=== PATIENT | female | born 1965 | race Caucasian/White ===

== ENCOUNTER 2019-08-18 | Emergency (ER) | payer OTHER ==
[~2019-08-18] MED LIST: CIPROFLOXACIN500 M1 PO; CIPROFLOXACN500 MG PO; ECK ANTACID1 CHW PO; EQL IBUPROFEN200 MG PO; LORTAB 5/3255 MG PO; LORTAB5 PO; NAPROSYN500 MG OR; NO HOME MEDS; PEPTO BISMOL30 ML OR; PERCOCET 10/31 COMBO PO; TYLENOL500 MG OR; ULTRAM50 MG OR; ZOFRAN ODT8 MG PO
[2019-08-18] MEDS ORDERED: PANTOPRAZOLE SO40 M1 PO (12:05)
[2019-08-18] MEDS ORDERED: LISINOPRIL10 M1 PO (12:05)
[2019-08-18] MEDS ORDERED: CLOPIDOGREL75 MG PO (12:05)
[2019-08-18] MEDS ORDERED: LOPRESSOR25 M1 PO (12:06)
[2019-08-18] MEDS ORDERED: ATORVASTATIN CA80 MG PO (12:06)
[2019-08-18] MEDS ORDERED: BACTROBAN TOP (12:29)
== END 2019-08-18 12:40 | disposition home or self-care (01) | DRG 563 ==
DX: S62.522A Displaced fracture of distal phalanx of left thumb, initial encounter for closed fracture (principal); S50.311A Abrasion of right elbow, initial encounter; S40.012A Contusion of left shoulder, initial encounter; S20.212A Contusion of left front wall of thorax, initial encounter; I10 Essential (primary) hypertension; V53.6XXA Passenger in pick-up truck or van injured in collision with car, pick-up truck or van in traffic accident, initial encounter

== ENCOUNTER 2019-10-22 | Emergency (ER) | payer OTHER ==
[~2019-10-22] MED LIST changes: +ATORVASTATIN CA80 MG PO; +BACTROBAN TOP; +CLOPIDOGREL75 MG PO; +LISINOPRIL10 M1 PO; +LOPRESSOR25 M1 PO; +PANTOPRAZOLE SO40 M1 PO
== END 2019-10-22 09:48 | disposition home or self-care (01) | DRG 566 ==
DX: S62.522K Displaced fracture of distal phalanx of left thumb, subsequent encounter for fracture with nonunion (principal); X58.XXXD Exposure to other specified factors, subsequent encounter

== ENCOUNTER 2021-09-17 09:27 | Observation (INO) | payer OTHER ==
[~2021-09-17] VITALS: Ht 154.9 cm; Wt 86.0 kg
--- NOTE | 2021-09-17 09:30 | NUR ---
PT AMB TO ROOM IN NO DISTRESS
--- NOTE | 2021-09-17 10:15 | NUR ---
UP TO WC TO GIVE URINE, TEACHING GIVEN ON PROPER HYPEINE PRIOR TO OBTAINING SPECIMEN. HAT PLACED I TOILERT FOR EASE. RETURNED TO BED OR CXR. TOLERTATED WELL.
[2021-09-17 10:26] LABS: URINE BILIRUBIN - DIPSTICK NEGATIVE (NEGATIVE); URINE BLOOD DIPSTICK NEGATIVE (NEGATIVE); URINE COLOR YELLOW; URINE GLUCOSE - DIPSTICK NEGATIVE (NEGATIVE); URINE KETONE TRACE mg/dL (NEGATIVE); URINE LEUK ESTERASE NEGATIVE (NEGATIVE); URINE PROTEIN - DIPSTICK 30 mg/dL (NEG-TRACE)
[2021-09-17 10:32] LABS: URINE NITRITE - DIPSTICK NEGATIVE (Negative); URINE RBC 0-2 RBC/hpf (0-5); URINE SQUAMOUS EPITHELIAL CELL FEW EPI/hpf (0-FEW); URINE WBC 0-2 WBC/hpf (0-5)
--- NOTE | 2021-09-17 10:57 | NUR ---
MD AT BEDSIDE TO DISCUSS RESULTS AND PLAN OF CARE.
--- NOTE | 2021-09-17 11:11 | NUR ---
PATIENT FEELING NAUSEAS. MD NOTIFIED.
--- NOTE | 2021-09-17 11:25 | NUR ---
2L NC PLACED ON PATIENT PER MD ORDER.
--- NOTE | 2021-09-17 12:00 | NUR ---
PATIENT RESTING IN STRETCHER AND DENIES ANY NEEDS. CALL TERRELL WITHIN REACH.
[2021-09-17 12:42] LABS: HEMATOCRIT 44.6 % (37.0-47.0); IMMATURE GRANULOCYTES 0.4 % (0.0-5.0); MEAN CELL VOLUME 99.1 fL CALC (80.0-100.0); MEAN CORPUSCULAR HGB 31.1 pG CALC (26.0-32.0); MEAN CORPUSCULAR HGB CONC 31.4 g/dL CAL (32.0-36.0); NEUT# 6.52 thou/uL (2.00-7.15); RED BLOOD COUNT 4.5 mill/uL (4.20-5.60); RED CELL DISTRI WIDTH 13.8 % (11.5-15.5)
--- NOTE | 2021-09-17 13:00 | NUR ---
PATIENT SPO2 96% ON 2L NC AND SHE IS AWARE OF PENDING RESULTS AND WAIT TIME. CALL TERRELL WITHIN REACH.
[2021-09-17 13:02] LABS: ALBUMIN 4.5 g/dL (3.2-5.0); ALKALINE PHOSPHATASE 87 u/l (38-126); BILIRUBIN, TOTAL 0.4 mg/dL (0.0-1.4); BUN 18 mg/dL (7-17); BUN/CREATININE RATIO 25 (12-20 (CALC)); CHLORIDE 100 mmol/l (95-108); CREATININE 0.7 mg/dL (0.5-1.0); GFR > 60 ML/MIN (>=60 (CALC)); GFR FOR AFR.AMER. > 60 ML/MIN (>=60 (CALC)); LIPASE 66 u/l (23-300); POTASSIUM 4.2 mmol/l (3.5-5.1); SGOT/AST 40 u/l (14-36); TOTAL PROTEIN 8.9 g/dL (6.3-8.2)
[2021-09-17 13:03] LABS: ANION GAP 15 (6-22 (CALC)); CARBON DIOXIDE 27 mmol/l (22-30); SODIUM 138 mmol/l (137-146)
[2021-09-17 13:05] LABS: ACT PARTIAL THROMBO TIME 30.5 SECONDS (20.0-32.5); PROTHROMBIN TIME 10.9 SECONDS (9.0-12.5)
--- NOTE | 2021-09-17 13:52 | NUR ---
PATIENT MEDICATED WITH TYLENOL FOR HEADACHE ORFERED.
--- NOTE | 2021-09-17 14:50 | NUR ---
MD AT BEDSIDE TO DISCUSS RESULTS AND PLAN FOR ADMISSION.
--- NOTE | 2021-09-17 15:30 | NUR ---
PATIENT AWARE OF PLAN FOR ADMISSION AND WAIT TIME. SHE DENIES ANY NAUSEA OR PAIN IN HEAD AT THIS TIME. CALL TERRELL WITHIN REACH.
--- NOTE | 2021-09-17 16:20 | NUR ---
PATIENT REPORT CALLED TO CLINT RENEE.
--- NOTE | 2021-09-17 16:45 | NUR ---
Admission Note Report Given to: CLINT RENEE Transported by: X Wheelchair Stretcher Transported with: X Nurse Transporter X Patent IV X O2 X Rail Layer Location: ICU X MS2 PATIENT TO ROOM IN STABLE CONDITION.
[2021-09-17 17:10] VITALS: BP 119/66
--- NOTE | 2021-09-17 17:10 | NUR ---
PT IN ROOM ACCOMPANIED BY Mohamud GONZALEZ RN. RESPITATIONS EVEN AND UNLABORED. O2 IN PLACE @2L NASAL CANULA; O2 SAT 99%. CLEAR UPPER LUNG SOUNDS; CRACKLES HEARD ON LOWER LOBES UPON AUSCULTATION. HYPOACTIVE BOWEL SOUNDS X4 QUADRANTS. NO DISTRESS NOTED. PT C/O ABDOMINAL PAIN 02/26; PT C/O NAUSEA. PT SITUATED TO ROOM AND THE USE OF CALL LIGHT. CALL LIGHT WITHIN REACH.
[2021-09-17 18:59] VITALS: BP 132/61
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
--- NOTE | 2021-09-17 20:09 | NUR ---
PATIENT STATES TYLENOL WORKED AND HER HEADACHE PAIN IS NOW A 2 .
[2021-09-18] VITALS: BP 109/73
--- NOTE | 2021-09-18 00:13 | NUR ---
PATIENT RESTING IN BED WITH EYES CLOSED. RESPIRATIONS EASY AND UNLABORED AT THIS TIME. O2 REMAINS ON AT 2 LITERS. SIDERAILS ARE UP AND CALL LIGHT IS WITHIN REACH. TELE MONITOR ON AND BEING MONITORED BY ED.
--- NOTE | 2021-09-18 03:40 | NUR ---
PATIENT C/O "SLIGHT" HEADACHE AND PAIN LEVEL IS A "3" OUT OF 0-10 AND IS REQUESTING TYLENOL AT THIS TIME. 650MG OF TYLENOL GIVEN AND WILL RE-EVLUATED. SIDERAILS ARE UP CALL LIGHT [facility] REACH.
[2021-09-18 04:00] VITALS: BP 126/71
--- NOTE | 2021-09-18 04:12 | NUR ---
PATIENT AWAKE IN BED AT THIS TIME. PATIENT STATES HER HEADACHE "DOES FEELL A LITTLE BETTER" TELE MONITOR REMAINS IN PLACE AND SIDERAILS ARE UP X 2 CALL LIGHT IS WITHIN REACH.
[2021-09-18 06:18] LABS: HEMATOCRIT 43.9 % (37.0-47.0); HEMOGLOBIN 13.8 g/dl (12.0-16.0); IMMATURE GRANULOCYTES 0.7 % (0.0-5.0); MEAN CELL VOLUME 99.5 fL CALC (80.0-100.0); MEAN CORPUSCULAR HGB 31.3 pG CALC (26.0-32.0); MEAN CORPUSCULAR HGB CONC 31.4 g/dL CAL (32.0-36.0); NEUT# 4.9 thou/uL (2.00-7.15); RED BLOOD COUNT 4.41 mill/uL (4.20-5.60); RED CELL DISTRI WIDTH 13.7 % (11.5-15.5)
[2021-09-18 06:37] LABS: ALBUMIN 4.4 g/dL (3.2-5.0); ALKALINE PHOSPHATASE 83 u/l (38-126); ANION GAP 16 (6-22 (CALC)); BILIRUBIN, TOTAL 0.4 mg/dL (0.0-1.4); BUN 25 mg/dL (7-17); BUN/CREATININE RATIO 36 (12-20 (CALC)); CARBON DIOXIDE 25 mmol/l (22-30); CHLORIDE 101 mmol/l (95-108); CREATININE 0.7 mg/dL (0.5-1.0); GFR > 60 ML/MIN (>=60 (CALC)); GFR FOR AFR.AMER. > 60 ML/MIN (>=60 (CALC)); POTASSIUM 4.7 mmol/l (3.5-5.1); SGOT/AST 39 u/l (14-36); SODIUM 137 mmol/l (137-146); TOTAL PROTEIN 8.4 g/dL (6.3-8.2)
[2021-09-18 08:23] VITALS: BP 122/72
--- NOTE | 2021-09-18 09:30 | NUR ---
PT IN BED IN LOW TERESA'S POSITION. CLEAR UPPER LOBES; CRACKLES ON LOWER LOBES UPON AUSCULTATION; EVEM AND UNLABORED RESPIRATIONS. NO DISTRESS NOTED. PT DENIES PAIN AT THE MOMENT. CALL LIGHT WITHIN REACH.
[2021-09-18 10:00] VITALS: BP 144/80
--- NOTE | 2021-09-18 12:00 | NUR ---
PT SITTING IN BED. PT REQUESTED JELLO AND FRESH WATER. PT C/O HEADACHE 05/29; PT MEDICATED AND REASSESSED 10/27. CALL LIGHT WITHIN REACH.
--- NOTE | 2021-09-18 16:00 | NUR ---
PT IN BED TALKING ON THE PHONE. NO DISTRESS NOTED. PT DENIES PAIN AT THE MOMENT. CALL LIGHT WITHIN REACH.
[2021-09-18 16:01] VITALS: BP 144/84
[2021-09-18 19:00] VITALS: BP 118/58
--- NOTE | 2021-09-18 19:10 | NUR ---
PATIETN SITTING AT BEDSIDE ALERT AND ORIENTED X 3 DENEIS ANY PIAN AT THIS TIME. TELE MONITOR IN PLACE BEING MONITORED BY ED. 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 02 REMAINS ON AT 2 LITERS AND SPO2 IS 97%. PATIENT HAS LARGE BM AT THIS TIME BOWEL SOUNDS ACTIVE AND PASSING GAS. UPPER AND MIDDLE LUNG LOBES ARE CLEAR AND LOWER [place]LLY HAVE CRACKLES NOTED. SIDERAILS ARE UP CALL LIGHT WITHIN REACH WILL CONTINUE TO MONITOR.
--- NOTE | 2021-09-18 23:51 | NUR ---
PATIENT LAYING IN BED WITH EYES CLOSED AT THIS TIME. RESPIRATIONS EASY AND NON LABORED AT THIS TIME 02 REMAINS ON 2LITERS. TELE MONITOR REMAINS ON WILL CONTINUE TO MONITOR.
[2021-09-19 00:29] VITALS: BP 127/66
--- NOTE | 2021-09-19 03:59 | NUR ---
PATIENT RESTING IN BED AT THIS TIME. DENIES ANY NEEDS AT THIS TIME. SIDERAILS ARE UP CALL LIGHT WITHIN REACH. TELE MONITOR ON AND BEING MONITORED BY ED. WILL CONTINUE TO MONITOR.
[2021-09-19 04:29] VITALS: BP 127/68
[2021-09-19 05:50] LABS: HEMATOCRIT 42.1 % (37.0-47.0); HEMOGLOBIN 13.4 g/dl (12.0-16.0); IMMATURE GRANULOCYTES 0.4 % (0.0-5.0); MEAN CELL VOLUME 98.1 fL CALC (80.0-100.0); MEAN CORPUSCULAR HGB 31.2 pG CALC (26.0-32.0); MEAN CORPUSCULAR HGB CONC 31.8 g/dL CAL (32.0-36.0); NEUT# 6.84 thou/uL (2.00-7.15); RED BLOOD COUNT 4.29 mill/uL (4.20-5.60); RED CELL DISTRI WIDTH 13.5 % (11.5-15.5)
[2021-09-19 06:16] LABS: ALKALINE PHOSPHATASE 82 u/l (38-126); ANION GAP 15 (6-22 (CALC)); BILIRUBIN, TOTAL 0.4 mg/dL (0.0-1.4); BUN 20 mg/dL (7-17); BUN/CREATININE RATIO 32 (12-20 (CALC)); CARBON DIOXIDE 26 mmol/l (22-30); CHLORIDE 100 mmol/l (95-108); CREATININE 0.6 mg/dL (0.5-1.0); GFR > 60 ML/MIN (>=60 (CALC)); GFR FOR AFR.AMER. > 60 ML/MIN (>=60 (CALC)); POTASSIUM 4.5 mmol/l (3.5-5.1); SGOT/AST 37 u/l (14-36); SODIUM 136 mmol/l (137-146); TOTAL PROTEIN 7.7 g/dL (6.3-8.2)
--- NOTE | 2021-09-19 07:40 | NUR ---
Patient is screened for rehab intervention and no needs are identified at this time
[2021-09-19 08:45] VITALS: BP 126/70
--- NOTE | 2021-09-19 08:50 | NUR ---
PT SITTING IN BED. EVEN AND UNLABORED RESPIRATIONS; CLEAR SOUNDS ON RUL,RML&DEMETRIO; FINE CRACKLES ON RLL&LLL. NO DISTRESS NOTED. ACTIVE BOWEL SOUNDS IN X4 QUADRANTS. PT C/O NAUSEA. PT TEMPERATURE 99.5. CALL LIGHT WITHIN REACH.
--- NOTE | 2021-09-19 10:30 | NUR ---
PT SITTING IN RECLINER. PT C/O HEADACHE 04/29. PT RECEIVED MEDICATION FOR HEADACHE AND NAUSEA. TELEMETRY IN PLACE. CALL LIGHT WITHIN REACH.
[2021-09-19 11:14] VITALS: BP 128/58
--- NOTE | 2021-09-19 12:00 | NUR ---
PT IN RECLINER, REASSESSED TEMP 96.1 AND PAIN 10/27. PT STATES: "MY NAUSEA WENT AWAY" AND REQUESTED DIANA LEWIS. CALL LIGHT WITHIN REACH.
[2021-09-19] MEDS ORDERED: DEXAMETHASON6 MG PO (12:34)
[2021-09-19] MEDS ORDERED: ZITHROMAX250 MG PO (12:34)
[2021-09-19] MEDS ORDERED: ASPIRIN REGULA325 M1 PO (12:35)
--- NOTE | 2021-09-19 12:42 | NUR ---
LESLIE RT AT BEDSIDE FOR 6 MIN WALK TEST STEPHANE
--- NOTE | 2021-09-19 12:42 | NUR ---
6 MINUTE WALK TEST PERFORMED. RESTING WITHOUT O2 HAD A PULSE OX SAT OF 93%. DURING THE WALKING PHASE ON THE TEST SATS DROPPED TO 91% AT THE LOWEST. AFTER WALK, PATIENT RESTING HAD A SAT OF 93%. DOCUMENT COMPLETED AND PLACED WITH CHART.
[2021-09-19 15:00] VITALS: BP 129/67
--- NOTE | 2021-09-19 16:30 | NUR ---
PT IN RECLINER. NO DISTRESS NOTED. PT DENIES PAIN AT THE MOMENT. PT REQUESTED FRESH WATER. CALL LUGHT WITHIN REACH.
--- NOTE | 2021-09-19 17:10 | NUR ---
Discharge instructions given. Patient verbalizes understanding of same. Discharged in stable condition via Wheelchair to Home with staff. All belongings sent with pt.
--- NOTE | 2021-09-21 10:30 | NUR ---
Post discharge pneumonia follow up call completed today, [id number]. Pt. states she is doing okay, but still a little SOB. No fever or chills. Pt. obtained medication prescribed at discharge and will begin taking today. No follow up appt. has been scheduled yet, but pt. states she will do so today. Pt. states she is getting a pulse ox today to monitor her O2 sats. No questions or needs expressed by patient at this time.
== END 2021-09-19 17:50 | disposition home or self-care (01) | DRG 177 ==
LOC: ED 09:27 → ED-I 14:21 → ED 14:34 → MS2 14:35
PROVIDERS: ADMIT Internal Medicine; ATTEND Internal Medicine
DX: U07.1 COVID-19 (principal); J12.82 Pneumonia due to coronavirus disease 2019; R09.02 Hypoxemia; I10 Essential (primary) hypertension; I25.10 Atherosclerotic heart disease of native coronary artery without angina pectoris; I25.2 Old myocardial infarction; Z95.5 Presence of coronary angioplasty implant and graft
CPT/HCPCS: G0378; J1650; Q9967

== ENCOUNTER 2021-09-25 18:37 | Inpatient (IN) | payer OTHER ==
[~2021-09-25] VITALS: Ht 154.9 cm; Wt 82.0 kg
[~2021-09-25 18:37] MED LIST changes: +ASPIRIN REGULA325 M1 PO; +DEXAMETHASON6 MG PO; +ZITHROMAX250 MG PO
[2021-09-25 19:21] LABS: HEMATOCRIT 43.7 % (37.0-47.0); MEAN CELL VOLUME 96.5 fL CALC (80.0-100.0); MEAN CORPUSCULAR HGB 30.9 pG CALC (26.0-32.0); NEUT# 9.65 thou/uL (2.00-7.15); RED BLOOD COUNT 4.53 mill/uL (4.20-5.60); RED CELL DISTRI WIDTH 13.5 % (11.5-15.5)
[2021-09-25 19:30] LABS: ALBUMIN 4.3 g/dL (3.2-5.0); ALKALINE PHOSPHATASE 123 u/l (38-126); ANION GAP 18 (6-22 (CALC)); BUN 33 mg/dL (7-17); BUN/CREATININE RATIO 47 (12-20 (CALC)); CARBON DIOXIDE 21 mmol/l (22-30); CHLORIDE 105 mmol/l (95-108); CREATININE 0.7 mg/dL (0.5-1.0); GFR > 60 ML/MIN (>=60 (CALC)); GFR FOR AFR.AMER. > 60 ML/MIN (>=60 (CALC)); LIPASE 85 u/l (23-300); MAGNESIUM 2.1 mg/dL (1.6-2.3); POTASSIUM 4.4 mmol/l (3.5-5.1); SGOT/AST 51 u/l (14-36); SODIUM 140 mmol/l (137-146)
[2021-09-25 19:31] LABS: BILIRUBIN, TOTAL 0.6 mg/dL (0.0-1.4); TOTAL PROTEIN 9.4 g/dL (6.3-8.2)
[2021-09-25 19:38] LABS: ACT PARTIAL THROMBO TIME 25.3 SECONDS (20.0-32.5); PROTHROMBIN TIME 10.4 SECONDS (9.0-12.5)
[2021-09-25 23:15] VITALS: BP 157/78
[2021-09-25 23:30] VITALS: BP 137/59
[2021-09-25 23:45] VITALS: BP 128/60
[2021-09-26] VITALS (21 sets, daily range): BP systolic 112–144; BP diastolic 57–82
[2021-09-26 05:33] LABS: HEMATOCRIT 41.2 % (37.0-47.0); HEMOGLOBIN 13.1 g/dl (12.0-16.0); MEAN CELL VOLUME 97.6 fL CALC (80.0-100.0); MEAN CORPUSCULAR HGB CONC 31.8 g/dL CAL (32.0-36.0); NEUT# 8.96 thou/uL (2.00-7.15); RED BLOOD COUNT 4.22 mill/uL (4.20-5.60); RED CELL DISTRI WIDTH 13.4 % (11.5-15.5)
[2021-09-26 05:41] LABS: IMMATURE GRANULOCYTES 9.7 % (0.0-5.0)
[2021-09-26 06:02] LABS: ALBUMIN 3.7 g/dL (3.2-5.0); ALKALINE PHOSPHATASE 101 u/l (38-126); ANION GAP 15 (6-22 (CALC)); BILIRUBIN, TOTAL 0.5 mg/dL (0.0-1.4); BUN 33 mg/dL (7-17); BUN/CREATININE RATIO 56 (12-20 (CALC)); C-REACTIVE PROTEIN 3.7 mg/dL (0-0.9); CARBON DIOXIDE 21 mmol/l (22-30); CHLORIDE 108 mmol/l (95-108); CREATININE 0.6 mg/dL (0.5-1.0); GFR > 60 ML/MIN (>=60 (CALC)); GFR FOR AFR.AMER. > 60 ML/MIN (>=60 (CALC)); SGOT/AST 36 u/l (14-36); SODIUM 139 mmol/l (137-146); TOTAL PROTEIN 7.6 g/dL (6.3-8.2)
[2021-09-26 06:11] LABS: URINE BILIRUBIN - DIPSTICK NEGATIVE (NEGATIVE); URINE BLOOD DIPSTICK TRACE-INTACT (NEGATIVE); URINE CLARITY CLEAR; URINE COLOR YELLOW; URINE GLUCOSE - DIPSTICK NEGATIVE (NEGATIVE); URINE KETONE NEGATIVE (NEGATIVE); URINE LEUK ESTERASE NEGATIVE (Negative); URINE NITRITE - DIPSTICK NEGATIVE (Negative); URINE PROTEIN - DIPSTICK 30 mg/dL (NEG-TRACE); URINE UROBILINOGEN - DIPSTICK 0.2 E.U./dL (0.2)
[2021-09-26 06:22] LABS: URINE EPITHELIAL CELLS FEW EPI/hpf (0-FEW)
[2021-09-26 06:23] LABS: URINE BACTERIA FEW hpf
[2021-09-27] VITALS (16 sets, daily range): BP systolic 103–138; BP diastolic 53–68
[2021-09-27 06:22] LABS: HEMATOCRIT 42.8 % (37.0-47.0); HEMOGLOBIN 13.7 g/dl (12.0-16.0); MEAN CELL VOLUME 97.5 fL CALC (80.0-100.0); MEAN CORPUSCULAR HGB 31.2 pG CALC (26.0-32.0); NEUT# 9.9 thou/uL (2.00-7.15); RED BLOOD COUNT 4.39 mill/uL (4.20-5.60); RED CELL DISTRI WIDTH 13.5 % (11.5-15.5)
[2021-09-27 06:27] LABS: IMMATURE GRANULOCYTES 9.2 % (0.0-5.0)
[2021-09-27 06:37] LABS: ALBUMIN 3.9 g/dL (3.2-5.0); ALKALINE PHOSPHATASE 106 u/l (38-126); ANION GAP 19 (6-22 (CALC)); BILIRUBIN, TOTAL 0.5 mg/dL (0.0-1.4); BUN 39 mg/dL (7-17); BUN/CREATININE RATIO 51 (12-20 (CALC)); CARBON DIOXIDE 20 mmol/l (22-30); CHLORIDE 107 mmol/l (95-108); CREATININE 0.8 mg/dL (0.5-1.0); GFR > 60 ML/MIN (>=60 (CALC)); GFR FOR AFR.AMER. > 60 ML/MIN (>=60 (CALC)); POTASSIUM 4.8 mmol/l (3.5-5.1); SGOT/AST 43 u/l (14-36); SODIUM 141 mmol/l (137-146); TOTAL PROTEIN 7.8 g/dL (6.3-8.2)
[2021-09-28] VITALS (18 sets, daily range): BP systolic 105–153; BP diastolic 54–76
[2021-09-28 05:46] LABS: HEMATOCRIT 43.1 % (37.0-47.0); HEMOGLOBIN 13.5 g/dl (12.0-16.0); MEAN CELL VOLUME 98.4 fL CALC (80.0-100.0); MEAN CORPUSCULAR HGB 30.8 pG CALC (26.0-32.0); MEAN CORPUSCULAR HGB CONC 31.3 g/dL CAL (32.0-36.0); NEUT# 8.57 thou/uL (2.00-7.15); RED BLOOD COUNT 4.38 mill/uL (4.20-5.60); RED CELL DISTRI WIDTH 13.4 % (11.5-15.5)
[2021-09-28 05:49] LABS: IMMATURE GRANULOCYTES 7.3 % (0.0-5.0)
[2021-09-28 06:27] LABS: ALBUMIN 3.7 g/dL (3.2-5.0); ALKALINE PHOSPHATASE 96 u/l (38-126); ANION GAP 16 (6-22 (CALC)); BILIRUBIN, TOTAL 0.4 mg/dL (0.0-1.4); BUN 37 mg/dL (7-17); BUN/CREATININE RATIO 57 (12-20 (CALC)); CARBON DIOXIDE 20 mmol/l (22-30); CHLORIDE 104 mmol/l (95-108); CREATININE 0.6 mg/dL (0.5-1.0); GFR > 60 ML/MIN (>=60 (CALC)); GFR FOR AFR.AMER. > 60 ML/MIN (>=60 (CALC)); POTASSIUM 4.7 mmol/l (3.5-5.1); SGOT/AST 29 u/l (14-36); SODIUM 135 mmol/l (137-146); TOTAL PROTEIN 7.5 g/dL (6.3-8.2)
[2021-09-29] VITALS (14 sets, daily range): BP systolic 119–143; BP diastolic 59–84
[2021-09-29 05:31] LABS: HEMATOCRIT 44.3 % (37.0-47.0); HEMOGLOBIN 14.1 g/dl (12.0-16.0); MEAN CELL VOLUME 97.8 fL CALC (80.0-100.0); MEAN CORPUSCULAR HGB 31.1 pG CALC (26.0-32.0); MEAN CORPUSCULAR HGB CONC 31.8 g/dL CAL (32.0-36.0); RED BLOOD COUNT 4.53 mill/uL (4.20-5.60); RED CELL DISTRI WIDTH 13.5 % (11.5-15.5)
[2021-09-29 05:45] LABS: ANION GAP 18 (6-22 (CALC)); BUN 32 mg/dL (7-17); BUN/CREATININE RATIO 50 (12-20 (CALC)); CARBON DIOXIDE 20 mmol/l (22-30); CHLORIDE 103 mmol/l (95-108); CREATININE 0.7 mg/dL (0.5-1.0); GFR > 60 ML/MIN (>=60 (CALC)); GFR FOR AFR.AMER. > 60 ML/MIN (>=60 (CALC)); POTASSIUM 4.8 mmol/l (3.5-5.1); SODIUM 137 mmol/l (137-146)
[2021-09-30] VITALS (11 sets, daily range): BP systolic 104–130; BP diastolic 55–79
[2021-09-30 05:04] LABS: HEMATOCRIT 43.3 % (37.0-47.0); HEMOGLOBIN 14.1 g/dl (12.0-16.0); IMMATURE GRANULOCYTES 5.5 % (0.0-5.0); MEAN CELL VOLUME 93.7 fL CALC (80.0-100.0); MEAN CORPUSCULAR HGB 30.5 pG CALC (26.0-32.0); MEAN CORPUSCULAR HGB CONC 32.6 g/dL CAL (32.0-36.0); NEUT# 9.57 thou/uL (2.00-7.15); RED BLOOD COUNT 4.62 mill/uL (4.20-5.60); RED CELL DISTRI WIDTH 13.3 % (11.5-15.5)
[2021-09-30 05:17] LABS: ALBUMIN 3.7 g/dL (3.2-5.0); ALKALINE PHOSPHATASE 81 u/l (38-126); ANION GAP 16 (6-22 (CALC)); BILIRUBIN, TOTAL 0.5 mg/dL (0.0-1.4); BUN 27 mg/dL (7-17); BUN/CREATININE RATIO 44 (12-20 (CALC)); C-REACTIVE PROTEIN < 0.5 mg/dL (0-0.9); CARBON DIOXIDE 21 mmol/l (22-30); CHLORIDE 102 mmol/l (95-108); CREATININE 0.6 mg/dL (0.5-1.0); GFR > 60 ML/MIN (>=60 (CALC)); GFR FOR AFR.AMER. > 60 ML/MIN (>=60 (CALC)); POTASSIUM 4.6 mmol/l (3.5-5.1); SGOT/AST 23 u/l (14-36); SODIUM 134 mmol/l (137-146); TOTAL PROTEIN 7.4 g/dL (6.3-8.2)
[2021-10-01] VITALS (13 sets, daily range): BP systolic 94–152; BP diastolic 51–72
[2021-10-01 04:36] LABS: MEAN CELL VOLUME 94.1 fL CALC (80.0-100.0); MEAN CORPUSCULAR HGB 30.6 pG CALC (26.0-32.0); MEAN CORPUSCULAR HGB CONC 32.6 g/dL CAL (32.0-36.0); RED BLOOD COUNT 4.57 mill/uL (4.20-5.60); RED CELL DISTRI WIDTH 13.4 % (11.5-15.5)
[2021-10-01 04:54] LABS: ALBUMIN 3.7 g/dL (3.2-5.0); ALKALINE PHOSPHATASE 75 u/l (38-126); ANION GAP 18 (6-22 (CALC)); BILIRUBIN, TOTAL 0.5 mg/dL (0.0-1.4); BUN 29 mg/dL (7-17); BUN/CREATININE RATIO 46 (12-20 (CALC)); CARBON DIOXIDE 20 mmol/l (22-30); CHLORIDE 103 mmol/l (95-108); CREATININE 0.6 mg/dL (0.5-1.0); GFR > 60 ML/MIN (>=60 (CALC)); GFR FOR AFR.AMER. > 60 ML/MIN (>=60 (CALC)); POTASSIUM 4.7 mmol/l (3.5-5.1); SGOT/AST 22 u/l (14-36); SODIUM 136 mmol/l (137-146); TOTAL PROTEIN 7.1 g/dL (6.3-8.2)
[2021-10-02] VITALS (13 sets, daily range): BP systolic 102–155; BP diastolic 55–88
[2021-10-02 05:09] LABS: HEMOGLOBIN 13.8 g/dl (12.0-16.0); MEAN CELL VOLUME 94.2 fL CALC (80.0-100.0); MEAN CORPUSCULAR HGB 30.9 pG CALC (26.0-32.0); MEAN CORPUSCULAR HGB CONC 32.9 g/dL CAL (32.0-36.0); NEUT# 10.05 thou/uL (2.00-7.15); RED BLOOD COUNT 4.46 mill/uL (4.20-5.60); RED CELL DISTRI WIDTH 13.3 % (11.5-15.5)
[2021-10-02 05:32] LABS: ALBUMIN 3.8 g/dL (3.2-5.0); ALKALINE PHOSPHATASE 72 u/l (38-126); ANION GAP 19 (6-22 (CALC)); BILIRUBIN, TOTAL 0.3 mg/dL (0.0-1.4); BUN 30 mg/dL (7-17); BUN/CREATININE RATIO 48 (12-20 (CALC)); C-REACTIVE PROTEIN < 0.5 mg/dL (0-0.9); CARBON DIOXIDE 18 mmol/l (22-30); CHLORIDE 102 mmol/l (95-108); CREATININE 0.6 mg/dL (0.5-1.0); GFR > 60 ML/MIN (>=60 (CALC)); GFR FOR AFR.AMER. > 60 ML/MIN (>=60 (CALC)); POTASSIUM 4.1 mmol/l (3.5-5.1); SGOT/AST 21 u/l (14-36); SODIUM 135 mmol/l (137-146)
[2021-10-03] VITALS (7 sets, daily range): BP systolic 104–128; BP diastolic 56–87
[2021-10-03 06:10] LABS: HEMATOCRIT 41.2 % (37.0-47.0); HEMOGLOBIN 13.3 g/dl (12.0-16.0); MEAN CELL VOLUME 95.2 fL CALC (80.0-100.0); MEAN CORPUSCULAR HGB 30.7 pG CALC (26.0-32.0); MEAN CORPUSCULAR HGB CONC 32.3 g/dL CAL (32.0-36.0); RED BLOOD COUNT 4.33 mill/uL (4.20-5.60); RED CELL DISTRI WIDTH 13.6 % (11.5-15.5)
[2021-10-03 06:20] LABS: ALBUMIN 3.6 g/dL (3.2-5.0); ALKALINE PHOSPHATASE 67 u/l (38-126); ANION GAP 17 (6-22 (CALC)); BILIRUBIN, TOTAL 0.4 mg/dL (0.0-1.4); BUN 34 mg/dL (7-17); BUN/CREATININE RATIO 50 (12-20 (CALC)); CARBON DIOXIDE 20 mmol/l (22-30); CHLORIDE 102 mmol/l (95-108); CREATININE 0.7 mg/dL (0.5-1.0); GFR > 60 ML/MIN (>=60 (CALC)); GFR FOR AFR.AMER. > 60 ML/MIN (>=60 (CALC)); POTASSIUM 4.3 mmol/l (3.5-5.1); SGOT/AST 19 u/l (14-36); SODIUM 135 mmol/l (137-146); TOTAL PROTEIN 6.7 g/dL (6.3-8.2)
[2021-10-04] VITALS (7 sets, daily range): BP systolic 108–136; BP diastolic 58–77
[2021-10-04 06:15] LABS: HEMATOCRIT 40.8 % (37.0-47.0); HEMOGLOBIN 13.5 g/dl (12.0-16.0); MEAN CELL VOLUME 94.9 fL CALC (80.0-100.0); MEAN CORPUSCULAR HGB 31.4 pG CALC (26.0-32.0); MEAN CORPUSCULAR HGB CONC 33.1 g/dL CAL (32.0-36.0); NEUT# 6.89 thou/uL (2.00-7.15); RED BLOOD COUNT 4.3 mill/uL (4.20-5.60); RED CELL DISTRI WIDTH 13.6 % (11.5-15.5)
[2021-10-04 06:52] LABS: ALBUMIN 3.7 g/dL (3.2-5.0); ALKALINE PHOSPHATASE 65 u/l (38-126); ANION GAP 17 (6-22 (CALC)); BUN 33 mg/dL (7-17); BUN/CREATININE RATIO 46 (12-20 (CALC)); C-REACTIVE PROTEIN < 0.5 mg/dL (0-0.9); CARBON DIOXIDE 24 mmol/l (22-30); CHLORIDE 101 mmol/l (95-108); CREATININE 0.7 mg/dL (0.5-1.0); GFR > 60 ML/MIN (>=60 (CALC)); GFR FOR AFR.AMER. > 60 ML/MIN (>=60 (CALC)); POTASSIUM 4.5 mmol/l (3.5-5.1); SGOT/AST 20 u/l (14-36); SODIUM 137 mmol/l (137-146); TOTAL PROTEIN 6.7 g/dL (6.3-8.2)
[2021-10-04 06:57] LABS: BILIRUBIN, TOTAL 0.6 mg/dL (0.0-1.4)
[2021-10-05] VITALS: BP 119/71
[2021-10-05 04:00] VITALS: BP 118/61
[2021-10-05 09:03] VITALS: BP 107/53
[2021-10-05 10:20] VITALS: BP 106/61
[2021-10-05 15:35] VITALS: BP 129/67
[2021-10-05 19:00] VITALS: BP 122/59
[2021-10-06] VITALS: BP 109/59
[2021-10-06 05:11] VITALS: BP 117/71
[2021-10-06 08:57] VITALS: BP 107/60
[2021-10-06 09:56] LABS: HEMATOCRIT 39.3 % (37.0-47.0); HEMOGLOBIN 12.9 g/dl (12.0-16.0); IMMATURE GRANULOCYTES 1.1 % (0.0-5.0); MEAN CELL VOLUME 96.6 fL CALC (80.0-100.0); MEAN CORPUSCULAR HGB 31.7 pG CALC (26.0-32.0); MEAN CORPUSCULAR HGB CONC 32.8 g/dL CAL (32.0-36.0); NEUT# 8.62 thou/uL (2.00-7.15); RED BLOOD COUNT 4.07 mill/uL (4.20-5.60); RED CELL DISTRI WIDTH 13.6 % (11.5-15.5)
[2021-10-06 10:14] LABS: ALBUMIN 3.7 g/dL (3.2-5.0); ALKALINE PHOSPHATASE 60 u/l (38-126); ANION GAP 17 (6-22 (CALC)); BILIRUBIN, TOTAL 0.5 mg/dL (0.0-1.4); BUN 28 mg/dL (7-17); BUN/CREATININE RATIO 38 (12-20 (CALC)); CARBON DIOXIDE 23 mmol/l (22-30); CHLORIDE 98 mmol/l (95-108); CREATININE 0.7 mg/dL (0.5-1.0); GFR > 60 ML/MIN (>=60 (CALC)); GFR FOR AFR.AMER. > 60 ML/MIN (>=60 (CALC)); SGOT/AST 23 u/l (14-36); SODIUM 133 mmol/l (137-146); TOTAL PROTEIN 6.9 g/dL (6.3-8.2)
[2021-10-06 10:38] VITALS: BP 114/60
[2021-10-06 14:45] VITALS: BP 107/64
[2021-10-06] MEDS ORDERED: DECADRON2 MG PO (14:56)
[2021-10-06] MEDS ORDERED: TESSALON PERLE100 MG PO (15:03)
== END 2021-10-06 16:28 | disposition home or self-care (01) | DRG 177 ==
LOC: ED 18:37 → ED-I 20:55 → ED 21:05 → ICU 21:05 → MS2 10-04 16:29
PROVIDERS: Nurse Practitioner; ADMIT Hospitalist; ATTEND Internal Medicine
PROC: XW033E5 Introduction of Remdesivir Anti-infective into Peripheral Vein, Percutaneous Approach, New Technology Group 5 (ICD-10-PCS; principal; 2021-09-26)
PROC: XW033H5 Introduction of Tocilizumab into Peripheral Vein, Percutaneous Approach, New Technology Group 5 (ICD-10-PCS; 2021-09-26)
DX: U07.1 COVID-19 (principal); J12.82 Pneumonia due to coronavirus disease 2019; J96.01 Acute respiratory failure with hypoxia; E87.2 Acidosis; I10 Essential (primary) hypertension; I25.10 Atherosclerotic heart disease of native coronary artery without angina pectoris; I25.2 Old myocardial infarction; Z90.49 Acquired absence of other specified parts of digestive tract
CPT/HCPCS: J1650; J3262; Q9967; S0164

== ENCOUNTER 2023-02-22 11:47 | Emergency (ER) | payer MEDICAID ==
[~2023-02-22] VITALS: Ht 154.9 cm; Wt 88.0 kg
[2023-02-22] VITALS (8 sets, daily range): BP systolic 112–186; BP diastolic 60–106
[~2023-02-22 11:47] MED LIST changes: +DECADRON2 MG PO; +TESSALON PERLE100 MG PO
[2023-02-22 12:26] LABS: URINE BILIRUBIN - DIPSTICK NEGATIVE (NEGATIVE); URINE BLOOD DIPSTICK NEGATIVE (NEGATIVE); URINE GLUCOSE - DIPSTICK NEGATIVE (NEGATIVE); URINE KETONE NEGATIVE (NEGATIVE); URINE PH 6.5 (4.5-8.0); URINE PROTEIN - DIPSTICK NEGATIVE (NEG-TRACE); URINE SPECIFIC GRAVITY <=1.005; URINE UROBILINOGEN - DIPSTICK 0.2 E.U./dL (0.2)
[2023-02-22 12:28] LABS: URINE NITRITE - DIPSTICK NEGATIVE (Negative)
[2023-02-22 12:30] LABS: URINE BACTERIA FEW hpf; URINE COLOR STRAW; URINE EPITHELIAL CELLS MODERATE EPI/hpf (0-FEW); URINE LEUK ESTERASE MODERATE (NEGATIVE)
[2023-02-22] MEDS ORDERED: KEFLEX500 MG PO (14:12)
[2023-02-22] MEDS ORDERED: PHENAZOPYRIDIN100 M1 PO (14:12)
== END 2023-02-22 14:50 | disposition home or self-care (01) ==
LOC: ED 11:47
PROVIDERS: Nurse Practitioner
DX: N39.0 Urinary tract infection, site not specified (principal); B96.20 Unspecified Escherichia coli [E. coli] as the cause of diseases classified elsewhere; J02.9 Acute pharyngitis, unspecified; I10 Essential (primary) hypertension; I25.2 Old myocardial infarction; Z88.0 Allergy status to penicillin; Z87.440 Personal history of urinary (tract) infections; Z20.822 Contact with and (suspected) exposure to COVID-19

== ENCOUNTER 2023-08-09 10:49 | Emergency (ER) | payer MEDICAID ==
[~2023-08-09] VITALS: Ht 154.9 cm; Wt 86.0 kg
[2023-08-09] VITALS (7 sets, daily range): BP systolic 77–164; BP diastolic 42–71
[~2023-08-09 10:49] MED LIST changes: +KEFLEX500 MG PO; +PHENAZOPYRIDIN100 M1 PO
[2023-08-09] MEDS ORDERED: MOTRIN800 MG PO (12:53)
[2023-08-10] MEDS ORDERED: ONDANSETRON4 MG PO (15:41)
== END 2023-08-09 12:35 | disposition home or self-care (01) ==
LOC: ED 10:49
DX: B34.9 Viral infection, unspecified (principal); I10 Essential (primary) hypertension; I25.2 Old myocardial infarction; Z20.822 Contact with and (suspected) exposure to COVID-19

== ENCOUNTER 2023-08-10 10:43 | Emergency (ER) | payer MEDICAID ==
[~2023-08-10] VITALS: Ht 154.9 cm; Wt 86.0 kg
[2023-08-10] VITALS (16 sets, daily range): BP systolic 105–158; BP diastolic 60–123
[~2023-08-10 10:43] MED LIST changes: +MOTRIN800 MG PO
[2023-08-10 13:09] LABS: BASO% 0.7 % (0-3); HEMATOCRIT 40.6 % (37.0-47.0); HEMOGLOBIN 12.9 g/dl (12.0-16.0); IMMATURE GRANULOCYTES 0.4 % (0.0-5.0); LYMPH% 42.5 % (15-41); MEAN CORPUSCULAR HGB 31.5 pG CALC (26.0-32.0); MEAN CORPUSCULAR HGB CONC 31.8 g/dL CAL (32.0-36.0); MONO% 11.2 % (2-13); NEUT# 3.89 thou/uL (2.00-7.15); NEUT% 43.2 % (42-76); RED BLOOD COUNT 4.1 mill/uL (4.20-5.60); RED CELL DISTRI WIDTH 13.4 % (11.5-15.5)
[2023-08-10 13:34] LABS: ALBUMIN 4.3 g/dL (3.2-5.0); ALKALINE PHOSPHATASE 84 u/l (38-126); ANION GAP 16 (6-22 (CALC)); BILIRUBIN, TOTAL 0.4 mg/dL (0.02-1.3); BUN 11 mg/dL (7-17); BUN/CREATININE RATIO 15 (12-20 (CALC)); CARBON DIOXIDE 25 mmol/l (22-30); CHLORIDE 106 mmol/l (95-108); CREATININE 0.7 mg/dL (0.5-1.0); GFR FOR AFR.AMER. > 60 ML/MIN (>=60 (CALC)); GFR OTHER RACES > 60 ML/MIN (>=60 (CALC)); LIPASE 56 u/l (23-300); SGOT/AST 29 u/l (14-36); TOTAL PROTEIN 7.6 g/dL (6.3-8.2)
[2023-08-10 13:36] LABS: SODIUM 143 mmol/l (137-146)
[2023-08-10 15:27] LABS: URINE BILIRUBIN - DIPSTICK Negative (NEGATIVE); URINE BLOOD DIPSTICK Negative (NEGATIVE); URINE COLOR Yellow; URINE GLUCOSE - DIPSTICK Negative (NEGATIVE); URINE KETONE Negative (NEGATIVE); URINE LEUK ESTERASE Negative (NEGATIVE); URINE NITRITE - DIPSTICK Negative (Negative); URINE PROTEIN - DIPSTICK Negative (NEG-TRACE); URINE SPECIFIC GRAVITY 1.015; URINE UROBILINOGEN - DIPSTICK 0.2 E.U./dL (0.2)
[2023-08-10] MEDS ORDERED: ONDANSETRON4 MG PO (15:41)
== END 2023-08-10 15:55 | disposition home or self-care (01) ==
LOC: ED 10:43
PROVIDERS: Nurse Practitioner
DX: B34.9 Viral infection, unspecified (principal); I10 Essential (primary) hypertension; I25.2 Old myocardial infarction

== ENCOUNTER 2024-03-05 10:06 | Emergency (ER) | payer MEDICAID ==
[~2024-03-05] VITALS: Ht 154.9 cm; Wt 81.8 kg
[2024-03-05] VITALS (17 sets, daily range): BP systolic 85–120; BP diastolic 52–78
[~2024-03-05 10:06] MED LIST changes: +NABUMETONE750 MG PO; +ONDANSETRON4 MG PO; +ORPHENADRINE100 MG PO
[2024-03-05 10:38] LABS: BASO% 0.4 % (0-3); EOS% 0.4 % (0-8); HEMATOCRIT 37.5 % (37.0-47.0); HEMOGLOBIN 12.2 g/dl (12.0-16.0); IMMATURE GRANULOCYTES 0.5 % (0.0-5.0); LYMPH% 28.3 % (15-41); MEAN CELL VOLUME 97.4 fL CALC (80.0-100.0); MEAN CORPUSCULAR HGB 31.7 pG CALC (26.0-32.0); MEAN CORPUSCULAR HGB CONC 32.5 g/dL CAL (32.0-36.0); MONO% 5.5 % (2-13); NEUT# 7.38 thou/uL (2.00-7.15); NEUT% 64.9 % (42-76); RED BLOOD COUNT 3.85 mill/uL (4.20-5.60); RED CELL DISTRI WIDTH 13.3 % (11.5-15.5)
[2024-03-05 10:55] LABS: ALBUMIN 3.9 g/dL (3.2-5.0); BILIRUBIN, TOTAL 0.4 mg/dL (0.02-1.3); CREATININE 0.7 mg/dL (0.5-1.0); TOTAL PROTEIN 7.3 g/dL (6.3-8.2)
[2024-03-05] MEDS ORDERED: ASPIRIN 81 MG/TAB PO ONE (11:20)
[2024-03-05] MEDS ORDERED: Heparin SODIUM (Porcine) 5,000 UNITS/ML SDV IV ONE (11:45)
[2024-03-05] MEDS ORDERED: NITROGLYCERIN 0.4 MG/TAB SL ONE (11:45)
[2024-03-05] MEDS ORDERED: Heparin SODIUM (Porcine) 500 ML IV ONE (11:45)
[2024-03-05] MEDS ORDERED: SODIUM CHLORIDE 0.9% 1,000 ML IV ONE (11:55)
== END 2024-03-05 13:11 | disposition short-term general hospital (02) ==
LOC: ED 10:06
PROVIDERS: Family Medicine
DX: I21.4 Non-ST elevation (NSTEMI) myocardial infarction (principal); I25.2 Old myocardial infarction; E66.01 Morbid (severe) obesity due to excess calories; Z20.822 Contact with and (suspected) exposure to COVID-19
CPT/HCPCS: J1644